=== PATIENT | female | born 1955 | race Caucasian/White ===

== ENCOUNTER → 2017-08-20 | Day surgery (SDC) | payer OTHER ==
[~2017-08-20] MED LIST: ACETAMINOPHEN/HYDROcodone 325 MG/7.5 MG TAB ONE; ALPR-138 PO; BUPIVACAINE/EPINEPHRINE 0.25% 50 ML VIAL ONE; CALC600T34 PO; CIPR250T2 PO; DICL50TA3 PO; HYDR-2768 PO; IBUP-232 PO; KETOROLAC TROMETHAMINE 30 MG/ML (IVP) VIAL IV PUSH ONE; LACTATED RINGER'S 1000 ML INJ 1,000 ML ONE; MIDAZOLAM HCL 2 MG/2 ML VIAL ONE; MORPHINE SULFATE 4 MG/ML INJ ONE; ONDANSETRON HCL 4 MG/2 ML VIAL IV PUSH ONE; OXYC-360 PO; PRAV80TA PO; PROPOFOL 200 MG/20 ML AMP IV ONE; PROZ40CA PO; TAB-TAB PO; ceFAZolin INJ 1,000 MG VIAL ONE
--- NOTE | 2017-08-20 16:33 | TN ---
cc: JOHN WALKER MD DATE OF SURGERY: 08/20/2079 ATTENDING PHYSICIAN/SURGEON John Walker MD. PREOPERATIVE DIAGNOSIS Left knee torn medial meniscus. POSTOPERATIVE DIAGNOSIS Left knee torn medial meniscus. PROCEDURE Left knee arthroscopy with partial medial meniscectomy. PROCEDURE IN DETAIL Informed consent was obtained, the patient was taken to the operating room and placed in the supine position on the operating room table. She was administered general anesthesia by Dr. Moreno of the anesthesia department. At that time the left leg was prepped with Betadine soap followed by Betadine paint, draped commenced sterile towel about the tourniquet, split sheet stockinette was by the foot and calf. This was wrapped with Coban extremity drape was applied leg was elevated. A time-out was held and confirmed. The patient has been given gram of Ancef prior to initiation of procedure at that time the tourniquet was inflated 300 mmHg. The leg was allowed to flex over the side of the operating table. An 18 gauge spinal needle was placed region of the lateral patellar portal. This region was infiltrated with 4 cc <<1:01>> , 0.25% Marcaine with epinephrine. Infiltration was also preformed in the medial and patellar portal and trans patellar tendon portal regions. A small incision was made with 11-blade in the region of the lateral infrapatellar portal. The arthroscopic cannulas placed second incision was made to region of the trans patellar tendon portal and the inflow cannula was placed. Diagnostic arthroscopy commenced and the knee compartment examined, anterior portion of the medial meniscus had some fraying as the leg was opened with abduction against the side post, the posterior portion zone one had a flap tear based at the posterior horn region. This was a horizontal cleavage type component. As the remainder of the meniscus was evaluated, there was a bucket-handle type tear seen involving the not vascularized portion of zone II both of these areas were probed and then debrided with basket forceps and Striker meniscal shaver. During debridement the medial portal was established. 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 The scope was placed intercondylar notch, anterior and posterior cruciate ligaments appeared intact. The scope was then placed in the lateral compartment leg was placed in a figure four position. There was some fraying along the posterior portion of the lateral meniscus at the free edge in zone six, one swipe to the meniscal shaver was performed and this region was debrided. The anterior posterior cruciate ligaments were intact. The scope could not easily be passed in the posterior or posterolateral compartments. The scope was placed in the suprapatellar pouch. There were some chondromalacia changes noted on the undersurface patella and the trochlear groove. There was some gentle debridement of some of the articular cartilage performed. There was some synovial tissue excised in the plica region. However, no specific pathologic plicas were seen. At that time the knee was thoroughly urinary thoroughly irrigated and suctioned all cannulas were removed. Each portal was closed with single 4-0 nylon interrupted stitch. Band-Aids, 4x4s Sof-Rol, Octavio wrap were applied to the patient's knee. At that time the tourniquet was deflated. Total tourniquet time was 32 minutes. The patient thought procedure was then taken to Recovery Room in stable condition at the completion of the procedure sponge and needle counts were correct. Estimated blood loss was less than 10 cc. MD SERGO Hopper/leslee /3:39 PM /4:22 PM
== END | disposition home or self-care (01) ==
LOC: ESDC 13:05
PROVIDERS: ATTEND Orthopaedic Surgery
DX: S83.212A Bucket-handle tear of medial meniscus, current injury, left knee, initial encounter (principal)
CPT/HCPCS: 01400; 29881; J0690; J1885; J2250; J2270; J2405; J3010; J7120